=== PATIENT | female | born 1960 | race Caucasian/White ===

== ENCOUNTER → 2019-12-16 | Outpatient (CLI) | payer OTHER ==
[~2019-12-16] MED LIST: BIOTIN2500 MCG PEG; CALCIUM + VITA1 EACH PO; CENTRUM ADULTS1 EACH PO; IRON PO; VITAMIN B122500 MCG PO
== END ==
LOC: RAD 05:00 → EDSTATUS 12-19 10:00
PROVIDERS: ATTEND Internal Medicine Gastroenterology
DX: Z01.818 Encounter for other preprocedural examination (principal)
CPT/HCPCS: 93005